=== PATIENT | male | born 1980 | race Caucasian/White ===

== ENCOUNTER 2016-11-30 20:13 | Emergency (ER) | payer OTHER ==
--- NOTE | ~2016-11-30 | CR142 ---
[facility] A Service of [facility] RADIOLOGY TEXT RESULTS PATIENT: KHAI DEJESUS LOCATION: SED : 82 UNIT #: [id number] AGE: [address]: DALLAS RAMIRES SEX: M ORDER DR: [id number] [address] [address] [id number] E MR#: [id number] Acc #: [id number] NAME: KHAI DEJESUS : 1980 SEX: M STUDY DATE/TIME: 11/30/2016 20:18 UNIT: SED ROOM: STUDY DESCRIPTION: CR Hand Min 3 Views Rt Attending Physician: Dallas Ramires Ordering Physician: Physician Non-Staff Primary Care Physician: Primary Care Physician No MEDICAL IMAGING REPORT This report is preliminary unless electronic signature is present. EXAM Right and 3 views HISTORY Right hand pain, fell and landed on hand tonight about 1730 hours FINDINGS 3 views of the right hand demonstrate displaced and angulated fractures of the bases of the fourth and fifth metacarpals. Mild dorsal displacement. Carpal bones remain intact. Normal carpal alignment. Mild soft tissue swelling. IMPRESSION Suspected comminuted and displaced intraarticular fractures bases of the fourth and fifth metacarpals with dorsal displacement. Dictated by... Poonam Sanchez M.D. THIS IS AN ELECTRONICALLY VERIFIED REPORT Poonam Sanchez M.D. at 12/01/2016 8:43 PM Tiffani TD: 12/01/2016 10:22 JOB #: [id number] MEDICAL IMAGING REPORT
[~2016-11-30 20:13] MED LIST: NO MEDICATIONS
== END 2016-11-30 20:58 | disposition home or self-care (01) ==
LOC: SED 20:13
DX: S62.314A Displaced fracture of base of fourth metacarpal bone, right hand, initial encounter for closed fracture (principal); S62.316A Displaced fracture of base of fifth metacarpal bone, right hand, initial encounter for closed fracture; F17.210 Nicotine dependence, cigarettes, uncomplicated; W01.0XXA Fall on same level from slipping, tripping and stumbling without subsequent striking against object, initial encounter; Y92.009 Unspecified place in unspecified non-institutional (private) residence as the place of occurrence of the external cause
CPT/HCPCS: 29125; 29280; 73130; 99283